=== PATIENT | female | born 1940 | race American Indian/Alaskan Native ===

== ENCOUNTER 2022-02-16 17:56 | Emergency (ER) | payer MEDICARE ==
[2022-02-16] MEDS ORDERED: SODIUM CHLORIDE 0.9% 1000 ML 1,000 ML IV ONE (18:11)
[2022-02-16 19:03] LABS: Basophils % (Auto) 0.1 % (0.0-1.8); Eosinophils # (Auto) 0.2 K/mm3 (0.0-0.4); Hematocrit 28.7 % (30.3-42.9); Lymphocytes # (Auto) 1.5 K/mm3 (1.2-5.4); Lymphocytes % (Auto) 13.1 % (13.4-35.0); Mean Corpuscular HGB Conc 31 % (30-34); Mean Corpuscular Volume 72 fl (79-97); Monocytes # (Auto) 1.6 K/mm3 (0.0-0.8); Monocytes % (Auto) 13.7 % (0.0-7.3); Platelet Count 328 K/mm3 (140-440); Red Blood Count 3.99 M/mm3 (3.65-5.03); Red Cell Distribution Width 14.6 % (13.2-15.2)
[2022-02-16 19:27] LABS: Alanine Aminotransferase 14 units/L (7-56); Albumin 3.2 g/dL (3.9-5); Blood Urea Nitrogen 14 mg/dL (7-17); Calcium 8.5 mg/dL (8.4-10.2); Hemolysis Index 34
[2022-02-16 19:37] LABS: BUN/Creatinine Ratio 28; Bilirubin,Direct < 0.2 mg/dL (0-0.2)
[2022-02-16] MEDS ORDERED: MORPHINE 2 MG/1 ML INJ IV ONE (20:36)
[2022-02-16] MEDS ORDERED: MORPHINE 4 MG/1 ML INJ ONE (20:38)
[2022-02-16] MEDS ORDERED: KETOROLAC 30 MG/1 ML INJ IV ONE (21:26)
[2022-02-16] MEDS ORDERED: HYDROGEN PEROXIDE 118 ML SOLUTION TP ONE (21:30)
--- NOTE | 2022-02-16 23:27 | Emergency Department Report ---
<MONA DOTSON - Last Filed: 02/16/22 23:22> ED General Adult HPI - General Chief complaint: Extremity Injury, Upper Stated complaint: DVT/ FRACTURE Time Seen by Provider: 02/16/22 18:06 Source: patient Mode of arrival: Ambulatory Limitations: Altered Mental Status, Physical Limitation - History of Present Illness Initial comments: Patient is an 81-year-old female sent from a nursing facility for evaluation of decreased appetite and suspicion for lower extremity DVT. She recently suffered a fall fracturing her left shoulder and was deemed not a surgical candidate. She is accompanied by her niece who states snf reports that she refuses to keep her sling on. Also reports decreased p.o. intake and is worried for possible dehydration. Severity scale (0 -10): 5 - Related Data Allergies Allergy/AdvReac Type Severity Reaction Status Date / Time Penicillins AdvReac Hives Verified 02/16/22 21:16 ED Review of Systems Constitutional: denies: chills, fever Respiratory: denies: cough, shortness of breath, wheezing Cardiovascular: denies: chest pain, palpitations Gastrointestinal: denies: abdominal pain, nausea, diarrhea Genitourinary: denies: urgency, dysuria, discharge Musculoskeletal: denies: back pain, joint swelling, arthralgia Skin: lesions. denies: rash Neurological: denies: headache, weakness, paresthesias Psychiatric: denies: anxiety, depression ED Past Medical Hx - Past Medical History Previous Medical History?: Yes Hx Hypertension: Yes Hx CVA: Yes Hx Diabetes: Yes Hx Deep Vein Thrombosis: Yes Hx Renal Disease: Yes Hx Psychiatric Treatment: Yes (major depressive disorder, anxiety disorder, delusional disorders) Additional medical history: atrial septal defect, hyperlipidemia, iron deficiency, Alhziemer's disease, insomnia, vitamin D deficiency - Surgical History Past Surgical History?: No - Social History Smoking Status: Never Smoker Substance Use Type: None ED Physical Exam - General Limitations: Altered Mental Status, Physical Limitation General appearance: alert, in no apparent distress - Head Head exam: Present: atraumatic, normocephalic - Neck Neck exam: Present: normal inspection. Absent: tenderness - Respiratory Respiratory exam: Present: normal lung sounds bilaterally, respiratory distress - Cardiovascular Cardiovascular Exam: Present: regular rate, normal rhythm, normal heart sounds - GI/Abdominal GI/Abdominal exam: Present: soft. Absent: distended, tenderness - Rectal Rectal exam: Present: deferred - Extremities Exam Extremities exam: Absent: tenderness, pedal edema, calf tenderness - Neurological Exam Neurological exam: Present: alert, oriented X3 - Psychiatric Psychiatric exam: Present: normal affect, normal mood - Skin Skin exam: Present: warm, dry, intact, normal color ED Medical Decision Making - Lab Data Result diagrams: 02/16/22 18:48 02/16/22 18:59 - Medical Decision Making WBC count 11.6. CBC and CMP otherwise grossly unremarkable. BLE ultrasound pending. Will sign out to for disposition per ultrasound results. ED Disposition Clinical Impression: Appetite loss Disposition: HOME / SELF CARE / HOMELESS Condition: Stable Additional Instructions: Start with bland diet to advance as tolerated You can also try boost protein/energy drink Call and have patient follow-up with your primary doctor in the next 3 to 5 days for progress Please do not hesitate to call or return to emergency room if your symptoms worsen <CED PETTY - Last Filed: 02/17/22 02:11> ED Review of Systems ROS: Stated complaint: DVT/ FRACTURE Other details as noted in HPI ED Course Vital Signs 02/16/22 02/16/22 02/16/22 18:01 18:50 20:04 Temperature 97.8 F 98.0 F Pulse Rate 104 H 81 Respiratory 16 18 Rate Blood Pressure 156/79 140/87 [Right] O2 Sat by Pulse 97 100 100 Oximetry 02/16/22 02/17/22 22:04 00:55 Temperature Pulse Rate 86 87 Respiratory 18 20 Rate Blood Pressure 142/89 147/81 [Right] O2 Sat by Pulse 100 100 Oximetry - Reevaluation(s) Reevaluation #1: 02/17/22 02:08 Pt signed out to me while waiting for her bilateral doppler to rule out DVT-- which resulted prelim to be negative for DVT-- pt reassured with close follow up with her PCP and warning to return if symptoms worsen 02/17/22 02:09 ED Medical Decision Making - Lab Data Result diagrams: 02/16/22 18:48 02/16/22 18:59 Critical care attestation.: If time is entered above; I have spent that time in minutes in the direct care of this critically ill patient, excluding procedure time. ED Disposition Is pt being admited?: No Does the pt Need Aspirin: No Time of Disposition: 02:11
[2022-02-17] MEDS ORDERED: ZIPRASIDONE MESYLATE 20 MG VIAL IM PRN (00:12)
[2022-02-17] MEDS ORDERED: DIVALPROEX SPRINKLE 125 MG CAP PO ONE (00:15)
[2022-02-17 02:28] VITALS: BP 139/87
--- NOTE | 2022-02-17 02:28 | Vascular Lab Report ---
DUPLEX DOPPLER LOWER EXTREMITY VEINS, BILATERAL INDICATION / CLINICAL INFORMATION: Rule out DVT TECHNIQUE: Duplex doppler imaging with spectral analysis was performed through the veins of both lowe r extremities using venous compression and other maneuvers. COMPARISON: None available. FINDINGS: RIGHT COMMON FEMORAL VEIN: Negative. RIGHT FEMORAL VEIN: Negative. RIGHT POPLITEAL VEIN: Negative. RIGHT CALF VEINS: Negative. LEFT COMMON FEMORAL VEIN: Negative. LEFT FEMORAL VEIN: Negative. LEFT POPLITEAL VEIN: Negative. LEFT CALF VEINS: Negative. ADDITIONAL FINDINGS: None. IMPRESSION: No sonographic evidence for DVT in either lower extremity. Signer Name: Schuyler Crowe MD Signed: 02/17/2022 2:23 AM Workstation Name: [id number]
== END 2022-02-17 05:10 | disposition home or self-care (01) ==
LOC: ED 17:56
DX: R63.0 Anorexia (principal); I10 Essential (primary) hypertension; E11.9 Type 2 diabetes mellitus without complications; Z88.0 Allergy status to penicillin
CPT/HCPCS: 36415; 80048; 80076; 85025; 93970; 96361; 96372; 96374; 96375; 99284; J1885; J2270; J3486; J7030